=== PATIENT | female | born 1990 | race Caucasian/White ===

== ENCOUNTER 2019-09-21 02:35 | Emergency (ER) | payer OTHER ==
[~2019-09-21] VITALS: Ht 160 cm; Wt 48.0 kg
[2019-09-21] MEDS ORDERED: ONDANSETRON HCL 4MG/2ML INJ IV STA (03:33)
[2019-09-21] MEDS ORDERED: SODIUM CHLORIDE 0.9% 1,000 ML IV ONE (03:33)
[2019-09-21] MEDS ORDERED: MORPHINE SULFATE 4 MG/ML CPJ (NOT FOR IM USE) IV STA (03:33)
[2019-09-21 04:58] LABS: CLARITY URINE CLOUDY (CLEAR); COLOR URINE DARK YELLOW (YELLOW); KETONES URINE TRACE (NEGATIVE); LEUKOCYTE ESTERASE URINE TRACE (NEGATIVE); NITRITE URINE NEGATIVE (NEGATIVE); OCCULT BLOOD URINE NEGATIVE (NEGATIVE); PROTEIN URINE 1+ (NEGATIVE); UROBILINOGEN URINE 0.2 E.U./dL (0.2-1.0)
[2019-09-21 04:59] LABS: CHLORIDE 104 mEq/L (98-107)
[2019-09-21 05:12] LABS: BASOPHILS % 0.1 % (0.0-2.0); HEMATOCRIT. 40.9 % (36.0-48.0); HEMOGLOBIN. 13.8 g/dL (12.0-16.0); LYMPHOCYTES % 22.6 % (20.0-50.0); MEAN CORPUSCULAR HEMOGLOBIN 29.2 pg (28.0-32.0); MEAN CORPUSCULAR VOLUME 86.8 fL (81.0-99.0); MEAN PLATELET VOLUME 8.1 fl (7.4-10.4); MONOCYTES % 4.7 % (2.0-8.0); NEUTROPHILS % 72.6 % (40.0-76.0); PLATELET 238 x1000/uL (130-400); RED BLOOD CELL COUNT 4.72 mill/uL (4.2-5.4); RED CELL DISTRIBUTION WIDTH 14.3 % (11.6-14.6)
[2019-09-21] MEDS ORDERED: IOHEXOL-300 100 ML BOTTLE ONE (05:49)
[2019-09-21] MEDS ORDERED: PIPERACILLIN/TAZOBACTAM 3.375GM/50ML PREMIX IV ONE (06:00)
[2019-09-21] MEDS ORDERED: ONDANSETRON HCL 4MG/2ML INJ IV ONE (08:15)
[2019-09-21] MEDS ORDERED: MORPHINE SULFATE 4 MG/ML CPJ (NOT FOR IM USE) IV ONE (08:15)
[2019-09-21 09:00] VITALS: BP 95/59
[2019-09-22] MEDS ORDERED: PRAM0.258 PO (06:05)
[2019-09-22] MEDS ORDERED: [UNRECOGNIZED DRUG - MIXTURE] MT (06:05)
[2019-09-22] MEDS ORDERED: PREG300C MT (06:05)
[2019-09-22] MEDS ORDERED: CLON0.1T14 MT (06:05)
[2019-09-22] MEDS ORDERED: LORA-249 PO (06:05)
== END 2019-09-21 13:31 | disposition home or self-care (01) ==
LOC: ER 02:35
DX: R10.9 Unspecified abdominal pain (principal); N39.0 Urinary tract infection, site not specified; I10 Essential (primary) hypertension
CPT/HCPCS: 36415; 74177; 76830; 76856; 80053; 81003; 81025; 83690; 85025; 96374; 96375; 96376; 99284; J2270; J2405; J2543; J7030; Q9967

== ENCOUNTER 2019-09-21 17:59 | Inpatient (IN) | payer OTHER ==
[~2019-09-21] VITALS: Ht 157.5 cm; Wt 47.6 kg
[2019-09-22] MEDS ORDERED: SODIUM CHLORIDE 0.9% 1,000 ML IV ONE (00:50)
[2019-09-22] MEDS ORDERED: ONDANSETRON HCL 4MG/2ML INJ IV STA (01:05)
[2019-09-22 02:20] LABS: CHLORIDE 109 mEq/L (98-107)
[2019-09-22] MEDS ORDERED: MORPHINE SULFATE 4 MG/ML CPJ (NOT FOR IM USE) IV NR (02:22)
[2019-09-22 02:23] LABS: BASOPHILS % 0.7 % (0.0-2.0); EOSINOPHILS % 0.3 % (0.0-5.0); HEMATOCRIT. 34.6 % (36.0-48.0); HEMOGLOBIN. 11.8 g/dL (12.0-16.0); LYMPHOCYTES % 42.3 % (20.0-50.0); MEAN CORPUSCULAR HEMOGLOBIN 29.5 pg (28.0-32.0); MEAN CORPUSCULAR VOLUME 86.7 fL (81.0-99.0); MEAN PLATELET VOLUME 7.8 fl (7.4-10.4); MONOCYTES % 5.6 % (2.0-8.0); NEUTROPHILS % 51.1 % (40.0-76.0); PLATELET 189 x1000/uL (130-400); RED BLOOD CELL COUNT 3.99 mill/uL (4.2-5.4)
[2019-09-22 02:32] LABS: HCG SCREEN NEGATIVE
[2019-09-22 02:39] LABS: PROTHROMBIN TIME 10.4 sec (9.6-11.0)
[2019-09-22 02:43] LABS: CLARITY URINE CLEAR (CLEAR); COLOR URINE YELLOW (YELLOW); KETONES URINE NEGATIVE (NEGATIVE); LEUKOCYTE ESTERASE URINE NEGATIVE (NEGATIVE); NITRITE URINE NEGATIVE (NEGATIVE); OCCULT BLOOD URINE NEGATIVE (NEGATIVE); PH URINE 6.5 (4.5-8.0); PROTEIN URINE NEGATIVE (NEGATIVE); SPECIFIC GRAVITY URINE 1.016 (1.005-1.030); UROBILINOGEN URINE 0.2 E.U./dL (0.2-1.0)
[2019-09-22 03:03] LABS: *AMPHETAMINES SCREEN URINE NEGATIVE (NEGATIVE); *BARBITURATES SCREEN URINE NEGATIVE (NEGATIVE); *COCAINE SCREEN URINE NEGATIVE (NEGATIVE)
[2019-09-22 03:04] LABS: METHADONE URINE SCREEN NEGATIVE (NEGATIVE); PHENCYCLIDINE URINE SCREEN NEGATIVE (NEGATIVE)
[2019-09-22 03:06] LABS: *BENZODIAZEPINES SCREEN URINE PRESUMTIVE POSITIVE (NEGATIVE); CANNABINOID URINE SCREEN PRESUMTIVE POSITIVE (NEGATIVE); OPIATES URINE SCREEN PRESUMTIVE POSITIVE (NEGATIVE)
[2019-09-22] MEDS ORDERED: ACETAMINOPHEN 325MG TABLET PO PRN (03:30)
[2019-09-22] MEDS ORDERED: CLON0.1T14 MT (06:05)
[2019-09-22] MEDS ORDERED: [UNRECOGNIZED DRUG - MIXTURE] MT (06:05)
[2019-09-22] MEDS ORDERED: LORA-249 PO (06:05)
[2019-09-22] MEDS ORDERED: PRAM0.258 PO (06:05)
[2019-09-22] MEDS ORDERED: PREG300C MT (06:05)
[2019-09-22 06:16] VITALS: BP 129/53
[2019-09-22] MEDS ORDERED: ONDANSETRON HCL 4MG/2ML INJ IV PRN (07:00)
[2019-09-22] MEDS ORDERED: FAMOTIDINE 20MG/2ML VIAL IV SCH (09:00)
[2019-09-22] MEDS: KETOROLAC 30MG/ML VIAL IV PRN ×2 (09:43→15:51)
[2019-09-22] MEDS: SODIUM CHLORIDE 0.9% 1,000 ML IV SCH ×2 (09:44→17:00)
[2019-09-22 15:38] LABS: BASOPHILS % 0.7 % (0.0-2.0); EOSINOPHILS % 0.9 % (0.0-5.0); HEMATOCRIT. 34.9 % (36.0-48.0); HEMOGLOBIN. 11.7 g/dL (12.0-16.0); MEAN CORPUSCULAR HEMOGLOBIN 29.8 pg (28.0-32.0); MEAN CORPUSCULAR VOLUME 88.7 fL (81.0-99.0); MEAN PLATELET VOLUME 8.1 fl (7.4-10.4); MONOCYTES % 5.1 % (2.0-8.0); NEUTROPHILS % 54.3 % (40.0-76.0); PLATELET 184 x1000/uL (130-400); RED BLOOD CELL COUNT 3.93 mill/uL (4.2-5.4); RED CELL DISTRIBUTION WIDTH 14.5 % (11.6-14.6)
[2019-09-22 16:07] LABS: C REACTIVE PROTEIN QUANT 0.8 mg/L (0.0-3.0); PHOSPHORUS 3.3 mg/dL (2.5-4.9)
[2019-09-22 19:31] VITALS: BP 116/78
[2019-09-22 20:00] VITALS: BP 116/78
[2019-09-26 09:09] LABS: SACCHAROMYCES CEREVISIAE IGG <20.0 Units (0.0-24.9); SACCHAROMYCES CEREVISIAE IGM <20.0 Units (0.0-24.9)
[2019-09-26 14:08] LABS: ATYPICAL pANCA <1:20 titer (Neg:<1:20)
== END 2019-09-22 20:30 | disposition home or self-care (01) | DRG 392 ==
LOC: ER 17:59 → ENRESERV 09-22 03:49 → 6EST 09-22 04:50
PROVIDERS: ADMIT Family Medicine; ATTEND Family Medicine
DX: K21.9 Gastro-esophageal reflux disease without esophagitis (principal); K52.9 Noninfective gastroenteritis and colitis, unspecified; E86.0 Dehydration; R10.31 Right lower quadrant pain; F41.9 Anxiety disorder, unspecified; G25.81 Restless legs syndrome; R00.1 Bradycardia, unspecified; R11.2 Nausea with vomiting, unspecified; G62.9 Polyneuropathy, unspecified; D17.79 Benign lipomatous neoplasm of other sites; F12.90 Cannabis use, unspecified, uncomplicated; I10 Essential (primary) hypertension; F32.9 Major depressive disorder, single episode, unspecified; K76.1 Chronic passive congestion of liver; Z87.440 Personal history of urinary (tract) infections
CPT/HCPCS: 36415; 71045; 76700; 80053; 80305; 81003; 83735; 84100; 84703; 85025; 85651; 86140; 86256; 86671; 93005; 96374; 96375; 99291; J1885; J2270; J2405; J3490; J7030